=== PATIENT | female | born 1970 | race Two or more races ===

== ENCOUNTER → 2020-07-11 15:27 | Outpatient (CLI) | payer OTHER | END | disposition home or self-care (01) | LOC: LAB 15:27 | PROVIDERS: ATTEND Urology | DX: N30.00 Acute cystitis without hematuria (principal); D62 Acute posthemorrhagic anemia ==

== ENCOUNTER → 2020-07-11 | Outpatient (CLI) | payer OTHER ==
[~2020-07-11] MED LIST: ORILISSA200 MG PO
== END | disposition home or self-care (01) ==
LOC: RAD 14:41
PROVIDERS: ATTEND Urology
DX: N20.0 Calculus of kidney (principal)

== ENCOUNTER 2020-07-19 08:46 | Inpatient (IN) | payer OTHER ==
[~2020-07-19] VITALS: Ht 160 cm; Wt 83.9 kg
== END 2020-07-21 14:42 | disposition home or self-care (01) | DRG 661 ==
LOC: CIR.AMB 08:46 → O/R 23:59 → SURH 23:59
PROVIDERS: ADMIT Urology; ATTEND Urology
PROC: 0T733DZ Dilation of Right Kidney Pelvis with Intraluminal Device, Percutaneous Approach (ICD-10-PCS; 2020-07-19)
PROC: BT1DYZZ Fluoroscopy of Right Kidney, Ureter and Bladder using Other Contrast (ICD-10-PCS; 2020-07-19)
PROC: 0TJB8ZZ Inspection of Bladder, Via Natural or Artificial Opening Endoscopic (ICD-10-PCS; 2020-07-19)
PROC: 0TC33ZZ Extirpation of Matter from Right Kidney Pelvis, Percutaneous Approach (ICD-10-PCS; principal; 2020-07-19 10:15)
DX: N20.0 Calculus of kidney (principal)